=== PATIENT | female | born 1990 | race Caucasian/White ===

== ENCOUNTER 2016-06-24 01:53 | Emergency (ER) | payer SELFPAY ==
[~2016-06-24] VITALS: Ht 167.6 cm; Wt 68.0 kg
[2016-06-24 02:00] VITALS: BP 147/100
--- NOTE | 2016-06-24 02:15 | PHYS DOC ---
Past Medical History Past Medical History: Asthma Past Surgical History: Tonsillectomy Alcohol Use: Heavy Drug Use: None Adult General Chief Complaint Chief Complaint: LACERATION/AVULSION HPI HPI Patient is a 26 year old female who presents with laceration to right wrist. Patient was at home when she accidentally her hand through a plate glass window door that was closing. She presents now with laceration to her wrist and a few small lacerations to her right hand. No other injuries. She reports her last tetanus booster was in middle school. Review of Systems Review of Systems Constitutional: Denies fever or chills Respiratory: Denies cough or shortness of breath Cardiovascular: Denies chest pain GI: Denies abdominal pain, nausea, vomiting, or diarrhea Musculoskeletal: Lacerations to R wrist, hand Neurologic: Denies headache, focal weakness or sensory changes Current Medications Current Medications Current Medications Medications (Trade) Dose Ordered Sig/Cong Start Time Stop Time Status Last Admin Dose Admin Diphtheria/ Tetanus/Acell Pertussis (Boostrix) 0.5 ml ONCE ONCE 06/24/16 02:30 06/24/16 02:31 DC 06/24/16 02:23 0.5 ML Lidocaine/Sodium Bicarbonate (Buffered Lidocaine 1%) 20 ml 1X ONCE 06/24/16 02:30 06/24/16 02:31 DC 06/24/16 02:44 20 ML Neomycin/ Polymyxin/ Bacitracin (Triple Antibiotic Ointment) 1 pkt 1X ONCE 06/24/16 03:15 06/24/16 03:16 DC Allergies Allergies Allergies Coded Allergies Type Severity Reaction Last Updated Verified No Known Drug Allergies 06/24/16 No Physical Exam Physical Exam Constitutional: Well developed, well nourished, no acute distress, non-toxic appearance HENT: Normocephalic, atraumatic Eyes: EOMI, conjunctiva normal, no discharge Neck: No stridor Pulmonary: No respiratory distress Skin: Warm, dry Neurologic: Alert and oriented X 3 Musculoskeletal: 7cm laceration to volar aspect of R wrist, shallow and uncomplicated; few small, very superficial lacerations to R hand; 2+ radial pulse, full motor function and sensation to light touch intact Current Patient Data Vital Signs Vital Signs Date Time Temp Pulse Resp B/P Pulse Ox O2 Delivery O2 Flow Rate FiO2 06/24/16 02:00 97.8 138 18 147/100 98 Room Air 97.8 EKG EKG [] Radiology/Procedures Radiology/Procedures X-ray R hand (my read): No acute bony abnormality, no foreign body noted X-ray R wrist (my read): No acute bony abnormality, no foreign body noted Course & Med Decision Making Course & Med Decision Making Pertinent Labs and Imaging studies reviewed. (See chart for details) Patient is 26-year-old female who presents with laceration to right wrist. X- ray ordered to rule out fracture or foreign body. Tetanus booster updated. Laceration to wrist repaired without complication. 2 small abrasions cleaned and covered with skin glue. Antibiotic ointment applied to area and wound dressed. Discharged with instructions for follow-up and return precautions. Dragon Disclaimer Dragon Disclaimer This electronic medical record was generated, in whole or in part, using a voice recognition dictation system. Departure Departure Impression: Primary Impression: Laceration Disposition: 01 HOME, SELF-CARE Condition: STABLE Patient Instructions: Laceration Care, Adult Additional Instructions: Thank you for allowing us to provide care today in the Emergency Department. Your stitches will need to come out in 7-10 days. You can return to the Emergency Department, go to urgent care, or see your regular doctor for this. Schedule a follow up appointment with your primary care doctor. Return promptly to the Emergency Department if you develop any new or concerning symptoms, such as signs of infection as we discussed. IRLANDA DARNELL MD Jun 24, 2016 02:15
[2016-06-24] MEDS ORDERED: LIDOCAINE 1% / SOD BICARB 8.4% 20 ML VIAL. IJ ONE (02:30)
[2016-06-24] MEDS ORDERED: DIPHTH,PERTUSS(ACELL),TET TOX 0.5 ML DISP.SYRIN. VAX IM ONE (02:30)
[2016-06-24] MEDS ORDERED: NEOMY/BACITR/POLYMYXIN OINT PACKET. TP ONE (03:15)
--- NOTE | 2016-06-24 07:12 | RAD ---
Right wrist, 2 views, 06/24/2016: History: Injury No fracture or dislocation is identified. No radiopaque foreign body is evident in the soft tissues. IMPRESSION: No significant abnormality is detected. Right hand, 2 views, 06/24/2016: No fracture or dislocation is identified. No radiopaque foreign body is evident in the soft tissues. IMPRESSION: No significant right hand abnormality is detected.
== END 2016-06-24 03:33 | disposition home or self-care (01) ==
LOC: ER 01:53
DX: S61.511A Laceration without foreign body of right wrist, initial encounter (principal); J45.909 Unspecified asthma, uncomplicated; W25.XXXA Contact with sharp glass, initial encounter; Y93.89 Activity, other specified; Y92.098 Other place in other non-institutional residence as the place of occurrence of the external cause; Y99.8 Other external cause status
CPT/HCPCS: 12002; 73100; 73120; 90471; 90715; 99284-25